=== PATIENT | female | born 1960 | race Asian ===

== ENCOUNTER 2024-08-19 15:45 | Emergency (ER) | payer MEDICAID, SELFPAY ==
[2024-08-19 15:47] VITALS: BP 121/81
--- NOTE | 2024-08-19 16:41 | ED.GENMED ---
History of Present Illness
General
Chief Complaint: Musculo-Skeletal Complaint
Time Seen by Provider: 08/19/24 16:33
History of Present Illness
History of Present Illness:
TIME OF INITIAL EVALUATION
- 4:35 PM
REVIEW OF OLD RECORDS
- The patient has history of metastatic breast cancer. No old records available for review in [facility]. Of note, I spoke to daughter and son at bedside who are translating without any difficulty
Note:
CHIEF COMPLAINT(S)
Left thigh pain
HISTORY OF PRESENT ILLNESS
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 The pain began following a lumbar compression fracture, which occurred approximately one month
prior, related to osteoporosis. This fracture did not result from a fall but rather from a spontaneous event while the patient was reaching for an object on the floor. Initially, the patient managed the pain with a lidocaine patch prescribed by her
primary care provider, with some relief. More recently, the pain has intensified; hence, she was switched from tramadol to oxycodone last night, though neither provided adequate relief. The patients daughter brings to our attention that their
attempt to reach external facilities for records has been unsuccessful.
Upon examination, the patient expressed mild tenderness when pressing on the area and is unable to lift her leg due to pain. Strength tests on the lower extremity show no deficit, suggesting pain-related limitation rather than weakness. There is no
known recent fall. The oncologist mentioned that if pain exacerbates, further exploration and management in the ER may be required.
ADDITIONAL HISTORY OBTAINED FROM SOURCES OTHER THAN THE PATIENT
Information provided by the patient�s daughter includes reliance on prescribed tramadol and subsequent use of oxycodone since the previous night without adequate pain relief.
CHRONIC MEDICAL CONDITIONS SIGNIFICANTLY AFFECTING CARE
The patient has a history of breast cancer with metastatic disease to the brain and osteoporosis, which led to a recent compression fracture.
MEDICATIONS
- Oxycodone (recently initiated as tramadol was ineffective for pain)
- Lidocaine patch (previously used for pain management)
PHYSICAL EXAM
GENERAL: Well appearing but appears somewhat uncomfortable
HEENT: Moist oral mucosa
NEUROLOGIC: Excellent strength all extremities, no obvious coordination deficits
PSYCHIATRIC: Appropriate mental status, normal insight and judgement
EXTREMITIES: There is only minor tenderness to palpation of the left thigh musculature, no significant bony tenderness, there is markedly decreased active range of motion at the left hip into flexion, there is very good strength in an L5 and S1
distribution to the left lower extremity distally
SKIN: No rash, no lesions
PLAN
- Order an ultrasound of the left thigh to rule out deep vein thrombosis.
- Obtain an X-ray of the left thigh to assess underlying bone or joint pathology.
- Administer Toradol (ketorolac) for pain management, given its efficacy in reducing inflammation, to evaluate potential relief compared to opioid medications.
- Monitor the patients response and address accordingly.
DIFFERENTIAL DIAGNOSIS
The Differential Diagnosis includes, in no particular order and is not limited to:
1. Musculoskeletal pain due to osteoporosis
2. Bone metastasis
3. Myofascial pain
4. Deep vein thrombosis
5. Osteomyelitis
6. Fracture/malunion
7. Nerve impingement
8. Arthritis
9. Referred pain from the lumbar spine
10. Soft tissue mass or lesion
RADIOLOGY
- Ultrasound shows no DVT and I do not see any abnormality on left femur x-ray
EKG
- Not indicated
LABS
- Not indicated
UPDATE
-SUMMARY OF ENCOUNTER
The patient, a 64-year-old female, presented to the emergency department with left thigh pain following a lumbar compression fracture related to osteoporosis. This visit focused on ruling out deep vein thrombosis given her history and was correlated
with her metastatic breast cancer, as these conditions increase the risk of blood clots. An ultrasound of the left thigh showed no signs of thrombosis. An X-ray of the left thigh was independently reviewed and showed no evident lesions or
abnormalities, but the radiology report is pending. Discussion included the challenge of differentiating cancer-related pain from other potential musculoskeletal issues. Administration of Toradol provided significant pain relief in contrast to
previous medications. It was suggested that she transition to [id number] ibuprofen for emerging musculoskeletal pain, while monitoring for possible stomach irritation. A gastroprotective agent such as esomeprazole was also discussed to
mitigate gastrointestinal side effects.
ASSESSMENT
The patients thigh pain is likely musculoskeletal due to her history of osteoporosis, compression fracture, and possible referred pain from the spine. However, metastatic involvement must be considered if symptoms persist despite initial management.
PLAN
Continue with non-steroidal anti-inflammatory drugs (NSAIDs) like ibuprofen for pain management, assess for gastrointestinal tolerance, and maintain the current proton pump inhibitor therapy. A follow-up is advised with an retail asset protection specialist for
managing osteoporosis-related complications or musculoskeletal assessments. The patient or family would be provided with written instructions for managing pain and the necessary referrals.
INDEPENDENT REVIEW OF LABS AND INTERPRETATION OF TESTS
- My independent review of the ultrasound indicates no evidence of deep vein thrombosis in the left thigh.
- My independent interpretation of the X-ray shows no detectable lesions or abnormalities in the left thigh, although the radiology report is pending.
PATIENT EDUCATION AND COUNSELING
The patient was advised on the safe use of NSAIDs for pain relief and cautions regarding potential stomach irritation, particularly in older age. The importance of a consistent follow-up with an retail asset protection specialist was emphasized to manage the
ongoing musculoskeletal issues effectively.
FOLLOW-UP INSTRUCTIONS
The patient was advised to follow up with an retail asset protection specialist for a comprehensive assessment of the compression fractures implications and to ensure effective pain management strategies.
MEDICATION RECONCILIATION
1. Toradol (ketorolac) administered during the visit for acute pain relief.
2. Suggested transition to ibuprofen for ongoing pain management, with dosage instructions provided.
3. Continue esomeprazole to manage potential gastrointestinal side effects of NSAIDs.
MEDICAL DECISION MAKING
Chronic conditions affecting care: Breast cancer with metastatic disease, osteoporosis leading to a recent compression fracture, history suggestive of musculoskeletal pain. Differential diagnoses considered were musculoskeletal pain due to
osteoporosis, deep vein thrombosis (ruled out), bone metastasis, and myofascial pain.
-Data:
Category 1
- Non-emergency department records reviewed: The patients history of medication use and previous medical history of breast cancer was considered.
- Clinical information was obtained from an independent historian: The daughter provided input on the patients pain management history.
-Risk: Prescription medication was prescribed, including advice on the use of [id number] NSAIDs. Care was significantly affected by the need to manage the complex interplay of the patient�s cancer, history of fractures, and associated chronic
pain conditions.
DIAGNOSIS
1. Musculoskeletal pain, unspecified (ICD-10: M79.1)
3. Osteoporosis with recent fracture (ICD-10: M80.00XA)
Phy Exam
Physical Exam
Physical Exam:
See HPI
Course
Orders/Labs/Results
Orders:
Orders
08/19/24 16:39
Ketorolac [Toradol] 30 mg IM NOW STA
CR Femur - Left Min 2 Vw Urgent
Comment:
Reason For Exam: pain, h/o metastatic breast cancer
US Periph Venous LOWER Ext LT Urgent
Comment:
Reason For Exam: L thigh pain eval for DVT
Vital Signs
Initial and Last Documented VS:
Initial Vital Signs
Temp Pulse Resp BP Pulse Ox
36.9 C 119 20 121/81 97
08/19/24 15:47 08/19/24 15:47 08/19/24 15:47 08/19/24 15:47 08/19/24 15:47
Last Documented Vital Signs
Temp Pulse Resp BP Pulse Ox
36.9 C 119 20 121/81 97
08/19/24 15:47 08/19/24 15:47 08/19/24 15:47 08/19/24 15:47 08/19/24 16:42
*Pulse Oximetry
SaO2: 97
Oxygen Mode of Delivery: Room air
Patient hypoxic: no
*Critical Care Note
Total Time (30-74mins, 75-104mins- exclusive of procedures): Not Applicable
ED Attending Note
-
Portions of this chart may have been created with voice recognition software.� Occasional wrong word or��sound alike� substitutions may have occurred due to the inherent limitations of voice recognition software.
Discharge Plan
Departure
Referrals:
ROBBY SCHULTZ PA [Family Provider, Family Practice]
Interventions
Interventions:
*Risk Screen - Suicide Last Done: 08/19/24 15:47
*Neglect/Abuse Screening Last Done: 08/19/24 15:47
Discharge Date and Time
Print Language: TURKISH
[2024-08-19] MEDS: TORADOL 30 MG IM (17:02)
== END 2024-08-19 18:37 | disposition home or self-care (01) ==
LOC: EMR 15:45
PROVIDERS: EMERGENCY PHYSICIAN Emergency Medicine; FAMILY PHYSICIAN Physician Assistant
DX: M79.652 Pain in left thigh (principal); C50.919 Malignant neoplasm of unspecified site of unspecified female breast; C79.31 Secondary malignant neoplasm of brain; M80.88XA Other osteoporosis with current pathological fracture, vertebra(e), initial encounter for fracture
CPT/HCPCS: 96372; 99284; 73552; 93971